=== PATIENT | female | born 1990 | race Caucasian/White ===

== ENCOUNTER 2017-02-19 20:13 | Emergency (ER) | payer OTHER ==
[~2017-02-19] VITALS: Ht 167.6 cm; Wt 57.0 kg
[2017-02-19 20:16] VITALS: BP 118/68; PULSE 72; RESP 18; TEMP 97.4; O2SAT 98
[2017-02-19] MEDS ORDERED: SODIUM CHLOR 0.9% 1000 ML INJ 1,000 ML IV ONE ×2 (20:30→21:45)
[2017-02-19] MEDS ORDERED: PROCHLORPERAZINE INJ 10 MG/2 ML VIAL IV PUSH ONE (20:30)
--- NOTE | 2017-02-19 20:46 | PD ---
HPI Chief Complaint: GI Complaint Time Seen by Provider: 20:16 Travel History International Travel<30 days: No Contact w/Intl Traveler<30days: No Traveled to known affect area: No History of Present Illness HPI This is a 26-year-old female with a history of previous appendicitis, chronic GI issues, who presents today with points of intractable nausea vomiting diarrhea. Patient states it started tonight. She reports started suddenly with her vomiting. She reports loose stool. Patient states that today she thought she may have a UTI. She denies any fevers but does report chills. There is no blood in her emesis or her stool. The patient does have an IUD in place and states that she does not think she is . She denies any vaginal discharge. She reports the pain as all over her abdomen. Mom is at bedside who is also a nurse is worried that this could be sepsis. There is no reported pulmonary issues. There are no other complaints time my examination. PFSH Past Medical History Medical History: Denies Significant Hx Diminished Hearing: No Tetanus Vaccination: Unknown Influenza Vaccination: No ?: Not Past Surgical History Appendectomy: Yes Gynecologic Surgery: Yes (IUD INSERTED) Oral Surgery: Yes (WISDOM TEETH REMOVED) Social History Alcohol Use: Yes (OCCASIONALLY) Tobacco Use: No Substance Use: No Allergies-Medications (Allergen,Severity, Reaction): Coded Allergies: No Known Allergies (Unverified , 02/19/17) Reported Meds & Prescriptions Reported Meds & Active Scripts Active Prochlorperazine Maleate 10 Mg Tab 10 Mg PO Q6H PRN Prochlorperazine Supp (Prochlorperazine) 25 Mg Supp 25 Mg RECTAL Q8HR PRN Review of Systems Except as stated in HPI: all other systems reviewed are Neg General / Constitutional: Positive: Chills, No: Fever HENT: No: Headaches, Neck Pain Cardiovascular: No: Chest Pain or Discomfort, Palpitations Respiratory: No: Cough, Shortness of Breath Gastrointestinal: Positive: Nausea, Vomiting, Diarrhea, Abdominal Pain, No: Hematemesis, Hematochezia (underlies) Genitourinary: Positive: Dysuria, No: Frequency, Discharge, Vaginal Bleeding Musculoskeletal: No: Weakness, Pain Neurologic: No: Weakness, Dizziness, Headache Physical Exam Narrative GENERAL: Well-nourished, well-developed patient, who is retching when I first entered the room. SKIN: Focused skin assessment warm/dry. HEAD: Normocephalic/atraumatic. EYES: No scleral icterus. No injection or drainage. NECK: Supple, trachea midline. CARDIOVASCULAR: Regular rate and rhythm without murmurs, gallops, or rubs. RESPIRATORY: Breath sounds equal bilaterally. No accessory muscle use. GASTROINTESTINAL: Abdomen soft, reported generalized tender. No rebound or guarding. MUSCULOSKELETAL: No cyanosis, or edema. BACK: No CVA tenderness. NEUROLOGICAL: Awake and alert. Cranial nerves II through XII intact. Motor grossly within normal limits. Five out of 5 muscle strength in all muscle groups. Normal speech. PSYCHIATRIC: Normal process. The patient appears anxious. Data Data Last Documented VS Vital Signs Date Time Temp Pulse Resp B/P (MAP) Pulse Ox O2 Delivery O2 Flow Rate FiO2 02/19/17 20:19 21 02/19/17 20:16 97.4 72 118/68 (85) 98 Orders Orders Complete Blood Count With Diff (02/19/17 20:20) Comprehensive Metabolic Panel (02/19/17 20:20) Lipase (02/19/17 20:20) Urinalysis - C+S If Indicated (02/19/17 20:20) Influenzae A/B Antigen (02/19/17 20:20) Iv Access Insert/Monitor (02/19/17 20:20) Ecg Monitoring (02/19/17 20:20) Oximetry (02/19/17 20:20) Ed Urine Pregnancytest Poc (02/19/17 20:20) Prochlorperazine Inj (Compazine Inj) (02/19/17 20:30) Sodium Chlor 0.9% 1000 Ml Inj (Ns 1000 M (02/19/17 20:30) Sodium Chlor 0.9% 1000 Ml Inj (Ns 1000 M (02/19/17 21:45) Labs Laboratory Tests Test 02/19/17 20:25 02/19/17 20:35 White Blood Count 10.1 TH/MM3 Red Blood Count 5.20 MIL/MM3 Hemoglobin 15.8 GM/DL Hematocrit 45.9 % Mean Corpuscular Volume 88.4 FL Mean Corpuscular Hemoglobin 30.3 PG Mean Corpuscular Hemoglobin Concent 34.3 % Red Cell Distribution Width 12.3 % Platelet Count 241 TH/MM3 Mean Platelet Volume 8.7 FL Neutrophils (%) (Auto) 88.7 % Lymphocytes (%) (Auto) 5.5 % Monocytes (%) (Auto) 4.4 % Eosinophils (%) (Auto) 1.2 % Basophils (%) (Auto) 0.2 % Neutrophils # (Auto) 8.9 TH/MM3 Lymphocytes # (Auto) 0.6 TH/MM3 Monocytes # (Auto) 0.4 TH/MM3 Eosinophils # (Auto) 0.1 TH/MM3 Basophils # (Auto) 0.0 TH/MM3 CBC Comment DIFF FINAL Differential Comment Blood Urea Nitrogen 13 MG/DL Creatinine 0.97 MG/DL Random Glucose 104 MG/DL Total Protein 8.2 GM/DL Albumin 4.5 GM/DL Calcium Level 9.1 MG/DL Alkaline Phosphatase 59 U/L Aspartate Amino Transf (AST/SGOT) 19 U/L Alanine Aminotransferase (ALT/SGPT) 26 U/L Total Bilirubin 0.7 MG/DL Sodium Level 138 MEQ/L Potassium Level 3.9 MEQ/L Chloride Level 105 MEQ/L Carbon Dioxide Level 24.8 MEQ/L Anion Gap 8 MEQ/L Estimat Glomerular Filtration Rate 70 ML/MIN Lipase 124 U/L Urine Color YELLOW Urine Turbidity CLEAR Urine pH 5.0 Urine Specific [place] 1.017 Urine Protein NEG mg/dL Urine Glucose (UA) NEG mg/dL Urine Ketones TRACE mg/dL Urine Occult Blood NEG Urine Nitrite NEG Urine Bilirubin NEG Urine Urobilinogen LESS THAN 2.0 MG/DL Urine Leukocyte Esterase NEG Urine RBC LESS THAN 1 /hpf Urine WBC LESS THAN 1 /hpf Urine Squamous Epithelial Cells <1 /hpf Urine Hyaline Casts 1 /lpf Microscopic Urinalysis Comment CULT NOT INDICATED MDM Medical Decision Making Medical Screen Exam Complete: Yes Emergency Medical Condition: Yes Differential Diagnosis Gastroenteritis versus cholecystitis versus diverticulitis versus pyelonephritis Narrative Course This is a 26-year-old female presents today with nausea vomiting diarrhea. Patient is visiting here from [place]. The patient's white blood cell count, LFTs and lipase are within normal limits. The patient's been given 10 mg of IV Compazine followed by 2 L of IV fluid. She is tolerated this well and is nontoxic. On examination she is awake alert in no distress. I discussed with her mother and father are at the bedside that this is likely a GI bug. They're concerned they may actually get up. I told him to use hand washing precautions. She'll be given a prescription for both by mouth and suppository Compazine. He is instructed to tolerate a bland diet and advance as tolerated. She is also instructed to drink plenty of fluids. Recommendation is that she follow up with her primary care physician. She's also instructed to return if she does any worsening symptoms. Diagnosis Primary Impression: Nausea vomiting and diarrhea Additional Instructions: Drink plenty of fluids. [place] diet. Return if feeling worse. Follow up with primary care physician when he returned back to home in [place]. Thank you for choosing [facility], we know you have a choice and healthcare. Med/Other Pt SpecificInfo: Prescription(s) given Scripts Prochlorperazine Maleate (Prochlorperazine Maleate) 10 Mg Tab 10 MG PO Q6H Y for NAUSEA OR VOMITING, #10 TAB 0 Refills Prov: Micah Gonzalez MD 02/19/17 Prochlorperazine Supp (Prochlorperazine Supp) 25 Mg Supp 25 MG RECTAL Q8HR Y for NAUSEA OR VOMITING, #10 SUPP 0 Refills Prov: Micah Gonzalez MD 02/19/17 Disposition: 01 DISCHARGE HOME Condition: Stable Micah Gonzalez MD Feb 19, 2017 20:46
[2017-02-19 20:56] LABS: AUTOMATED NEUTROPHIL # 8.9 TH/MM3 (1.8-7.7); BASOPHIL % 0.2 % (0.0-2.0); EOSINOPHIL # 0.1 TH/MM3 (0-0.4); EOSINOPHIL % 1.2 % (0.0-4.0); HEMATOCRIT 45.9 % (35.0-46.0); HEMOGLOBIN 15.8 GM/DL (11.6-15.3); LYMPH % 5.5 % (9.0-44.0); LYMPHOCYTE # 0.6 TH/MM3 (1.0-4.8); MEAN CELL VOLUME 88.4 FL (80.0-100.0); MEAN CORPUSCULAR HEMOGLOBIN 30.3 PG (27.0-34.0); MEAN CORPUSCULAR HGB CONC 34.3 % (32.0-36.0); MEAN PLATELET VOLUME 8.7 FL (7.0-11.0); MONO % 4.4 % (0.0-8.0); MONOCYTE # 0.4 TH/MM3 (0-0.9); NEUT % 88.7 % (16.0-70.0); PLATELET COUNT 241 TH/MM3 (150-450); RED CELL DISTRIBUTION WIDTH 12.3 % (11.6-17.2); WHITE BLOOD COUNT 10.1 TH/MM3 (4.0-11.0)
[2017-02-19 21:05] LABS: BILIRUBIN, URINE NEG (NEG); BLOOD, URINE NEG (NEG); GLUCOSE,URINE NEG (NEG); HYALINE CAST, URINE 1 /lpf (RARE); KETONE, URINE TRACE mg/dL (NEG); NITRITE,URINE NEG (NEG); SQUAMOUS EPITHELIAL CELL URINE <1 /hpf (0-5); URINE COLOR YELLOW (YELLW/STRAW); URINE LEUKOCYTE ESTERASE NEG (NEG)
[2017-02-19 21:13] LABS: ALBUMIN 4.5 GM/DL (3.4-5.0); ALT (GPT) 26 U/L (10-53); AST (GOT) 19 U/L (15-37); BICARBONATE 24.8 MEQ/L (21.0-32.0); BLOOD UREA NITROGEN 13 MG/DL (7-18); CALCIUM 9.1 MG/DL (8.5-10.1); CHLORIDE 105 MEQ/L (98-107); CREATININE 0.97 MG/DL (0.50-1.00); GLOMERULAR FILTRATION RATE 70 ML/MIN (>89); GLUCOSE,RANDOM 104 MG/DL (74-106); LIPASE 124 U/L (73-393); SODIUM (NA) 138 MEQ/L (136-145)
[2017-02-19 21:15] LABS: ALKALINE PHOSPHATASE 59 U/L (45-117); TOTAL BILIRUBIN ADULT 0.7 MG/DL (0.2-1.0); TOTAL PROTEIN 8.2 GM/DL (6.4-8.2)
[2017-02-19] MEDS ORDERED: PROC10TA PO (22:34)
[2017-02-19] MEDS ORDERED: PROC25SU22 RECTAL (22:34)
[2017-02-19] MEDS ORDERED: ONDANSETRON HCL 4 MG/2 ML VIAL IV PUSH ONE (23:00)
[2017-02-19 23:22] VITALS: BP 105/67
== END 2017-02-19 23:23 | disposition home or self-care (01) ==
LOC: NEPE 20:13
DX: R11.2 Nausea with vomiting, unspecified (principal); R19.7 Diarrhea, unspecified
CPT/HCPCS: 80053; 81001; 83690; 84703; 85025; 87804; 96361; 96374; 96375; 99284; J0780; J2405; J7030